=== PATIENT | male | born 1985 | race Caucasian/White ===

== ENCOUNTER 2018-07-13 15:09 | Emergency (ER) | payer MEDICAID ==
[~2018-07-13] VITALS: Ht 175.3 cm; Wt 93.9 kg
[2018-07-13 15:12] VITALS: BP 129/75
--- NOTE | 2018-07-13 15:28 | NUR ---
Patient given discharge instructions and they have confirmed that they understand the instructions. Patient ambulatory with steady gait.
== END 2018-07-13 15:33 | disposition home or self-care (01) ==
LOC: ED 15:27
DX: N63.0 Unspecified lump in unspecified breast (principal)
CPT/HCPCS: 99281; 99283

== ENCOUNTER 2018-09-22 17:15 | Emergency (ER) | payer MEDICAID ==
[~2018-09-22] VITALS: Ht 175.3 cm; Wt 96.3 kg
[2018-09-22 17:18] VITALS: BP 157/81
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
== END 2018-09-22 18:00 | disposition home or self-care (01) ==
LOC: ED 17:58
DX: G89.29 Other chronic pain (principal); M25.561 Pain in right knee; G62.9 Polyneuropathy, unspecified
CPT/HCPCS: 99283

== ENCOUNTER 2018-10-12 14:24 | Emergency (ER) | payer MEDICAID ==
[~2018-10-12] VITALS: Ht 175.3 cm; Wt 98.4 kg
[2018-10-12 14:26] VITALS: BP 129/77
== END 2018-10-12 15:01 | disposition home or self-care (01) ==
LOC: ED 14:55
DX: M79.2 Neuralgia and neuritis, unspecified (principal); Z76.0 Encounter for issue of repeat prescription
CPT/HCPCS: 99283

== ENCOUNTER 2019-01-24 15:35 | Emergency (ER) | payer MEDICAID ==
[~2019-01-24] VITALS: Ht 175.3 cm; Wt 102.0 kg
[~2019-01-24 15:35] MED LIST: GABA300C10 PO
[2019-01-24 15:56] VITALS: BP 135/77
--- NOTE | 2019-01-24 16:35 | NUR ---
DC EDUCATION PROVIDED, PT DEMONSTRATES UNDERSTANDING. PT AMBULATED STEADILY TO DC WITH RN
== END 2019-01-24 16:37 | disposition home or self-care (01) ==
LOC: ED 16:31
DX: J06.9 Acute upper respiratory infection, unspecified (principal)
CPT/HCPCS: 71046; 87081; 87880; 99284